=== PATIENT | female | born 1990 | race Caucasian/White ===

== ENCOUNTER 2025-01-08 16:59 | Inpatient (IN) | payer OTHER ==
[2025-01-08 17:26] VITALS: BMI 29.6
[2025-01-08 18:12] LABS: #Basophils Less than 0.03 10x3/uL (0.0-0.2); #Eosinophils 0.03 10x3/uL (0.0-0.5); #Monocytes 0.90 10x3/uL (0.0-1.1); #Neutrophils 5.95 10x3/uL (1.5-8.4); %Basophils 0.2 % (0.0-2.0); %Eosinophils 0.4 % (0.0-6.0); %Lymphocytes 16.4 % (18.0-47.0); %Monocytes 10.8 % (0.0-10.0); %Neutrophils 71.6 % (40.0-75.0); Hematocrit 30.3 % (34.9-44.5); Hemoglobin 10.1 g/dL (12.0-15.5); Mean Corpuscular Hemoglobin 29.4 pg (27.0-33.0); Mean Corpuscular Volume 88.1 fL (81.6-98.3); Platelet Count 185 10x3/uL (150-450); Red Blood Cell (RBC) Count 3.44 10x6/uL (3.90-5.03); White Blood Cell (WBC) Count 8.31 10x3/uL (3.5-10.5)
[2025-01-08 18:29] LABS: ALT (SGPT) 14 U/L (Less than 34); AST (SGOT) 22 U/L (11-34); Albumin 3.2 g/dL (3.1-4.5); Alkaline Phosphatase 87 U/L (40-110); Anion Gap 14 mmol/L (10-20); BUN (Urea Nitrogen) 8 mg/dL (7.0-18.7); Bilirubin, Total 0.2 mg/dL (0.3-1.2); Calc. Creatinine Clearance 172 mL/min (70-130); Calcium 9.1 mg/dL (7.8-10.44); Carbon Dioxide 21 mmol/L (22-29); Chloride 104 mmol/L (98-107); Globulin 4.1 g/dL (2.4-3.5); Glucose 91 mg/dL (70-105); Potassium 3.8 mmol/L (3.5-5.1); Sodium 135 mmol/L (136-145)
[2025-01-08 18:29] LABS: Protein, Urine Random Quant 26.0 mg/dL (1-14)
[2025-01-08] MEDS ORDERED: hydrALAZINE 20 MG/ML VIAL SLOW IVP PRN (19:43)
[2025-01-08] MEDS ORDERED: Oxytocin 30 units/NS 500 ML 500 ML IV SCH (19:45)
[2025-01-08] MEDS ORDERED: Calcium Gluc 4.6 MEQ/10 ML (100 MG/ML) SLOW IVP PRN (19:53)
[2025-01-08] MEDS: Magnesium Sulfate 20 gm/500 ml 20 GM/500 ML BAG IVPB SCH (20:30)
[2025-01-08] MEDS: Acetaminophen 500 MG TAB PO SCH (20:31)
[2025-01-08 22:04] LABS: Syphilis Antibody Index 0.03 S/CO (<1.00 Non-Reactive)
[2025-01-08 22:05] LABS: Hep B Surf Ag - L&D Non-Reactive S/CO (NonReactive)
[2025-01-09] MEDS: diphenhydrAMINE 50 MG/ML VIAL IVP SCH (01:04)
[2025-01-09] MEDS: Ondansetron PF 4 MG/2 ML Vial IVP PRN ×2 (03:23→21:30)
[2025-01-09 04:15] LABS: Magnesium 5.2 mg/dL (1.6-2.6)
[2025-01-09] MEDS ORDERED: Benzocaine-Menthol 82.5 ML CAN TOP PRN (04:42)
[2025-01-09] MEDS ORDERED: Ibuprofen 800 MG TAB PO PRN (06:23)
[2025-01-09] MEDS ORDERED: Lidocaine 1% (PF) 30 ML VIAL SC PRN (06:23)
[2025-01-09 06:45] LABS: #Basophils Less than 0.03 10x3/uL (0.0-0.2); #Eosinophils Less than 0.03 10x3/uL (0.0-0.5); #Monocytes 0.14 10x3/uL (0.0-1.1); #Neutrophils 9.66 10x3/uL (1.5-8.4); %Basophils 0.1 % (0.0-2.0); %Eosinophils 0.0 % (0.0-6.0); %Lymphocytes 7.4 % (18.0-47.0); %Monocytes 1.3 % (0.0-10.0); %Neutrophils 90.5 % (40.0-75.0); Hematocrit 30.2 % (34.9-44.5); Hemoglobin 9.9 g/dL (12.0-15.5); Mean Corpuscular Hemoglobin 29.3 pg (27.0-33.0); Mean Corpuscular Volume 89.3 fL (81.6-98.3); Platelet Count 197 10x3/uL (150-450); Red Blood Cell (RBC) Count 3.38 10x6/uL (3.90-5.03); White Blood Cell (WBC) Count 10.68 10x3/uL (3.5-10.5)
[2025-01-09 07:03] LABS: ALT (SGPT) 14 U/L (Less than 34); AST (SGOT) 20 U/L (11-34); Albumin 3.1 g/dL (3.1-4.5); Alkaline Phosphatase 86 U/L (40-110); Anion Gap 16 mmol/L (10-20); BUN (Urea Nitrogen) 6 mg/dL (7.0-18.7); Bilirubin, Total 0.3 mg/dL (0.3-1.2); Calc. Creatinine Clearance 163 mL/min (70-130); Calcium 7.4 mg/dL (7.8-10.44); Carbon Dioxide 20 mmol/L (22-29); Chloride 101 mmol/L (98-107); Globulin 4.0 g/dL (2.4-3.5); Glucose 156 mg/dL (70-105); Potassium 4.1 mmol/L (3.5-5.1); Sodium 133 mmol/L (136-145)
[2025-01-09] MEDS: Penicillin G Potassium 5 MILL.UNITS in Sodium Chloride 0.9% 100 ML IVPB SCH (08:36)
[2025-01-09] MEDS: Metoclopramide HCl 10 MG (2 mL) VIAL IVP SCH (09:41)
[2025-01-09] MEDS: Penicillin G 2.5 MILL.units 2.5 MILL.UNITS in Premix 1 BAG IVPB SCH (13:15)
[2025-01-09] MEDS: fentaNYL/Ropivacaine Epidural 100 ML ONE (19:35)
[2025-01-09] MEDS ORDERED: diphenhydrAMINE 50 MG/ML VIAL IVP PRN (19:49)
[2025-01-09] MEDS ORDERED: Communication Order-Pharmacy FS SCH (20:00)
[2025-01-09] MEDS ORDERED: Pantoprazole 40 MG DR.TAB PO SCH (22:15)
[2025-01-09] MEDS: Pantoprazole 40 MG VIAL IVP SCH (23:03)
[2025-01-10] MEDS: Oxytocin 30 units/NS 500 ML 500 ML IV SCH (02:01)
[2025-01-10] MEDS: fentaNYL 2 mcg/Ropivacaine 0.2% Epidural 100 ML CADD EPIDURAL SCH (04:53)
[2025-01-10] MEDS ORDERED: Diphenoxylate HCl/Atropine Tablet PO PRN (07:35)
[2025-01-10] MEDS ORDERED: Tranexamic Acid 1,000 MG in Sodium Chloride 0.9% 250 ML 250 ML IVPB PRN (07:36)
[2025-01-10] MEDS ORDERED: Carboprost 250 MCG/ML AMP IM PRN (07:38)
[2025-01-10] MEDS: Tranexamic Acid 1,000 MG/10 ML VIAL ONE (08:05)
[2025-01-10] MEDS ORDERED: Preparation H Ointment 28 GM TUBE PR PRN (08:34)
[2025-01-10] MEDS ORDERED: hydrALAZINE 20 MG/ML VIAL SLOW IVP PRN (08:34)
[2025-01-10] MEDS ORDERED: Bisacodyl 10 MG SUPP PR PRN (08:34)
[2025-01-10] MEDS ORDERED: Lanolin Ointment 7 GM TUBE TOP PRN (08:34)
[2025-01-10] MEDS ORDERED: Benzocaine-Menthol 82.5 ML CAN TOP PRN (08:34)
[2025-01-10] MEDS ORDERED: Milk Of Magnesia 30 ML UDCUP PO PRN (08:34)
[2025-01-10] MEDS ORDERED: Pantoprazole 40 MG GRANULES PACKET PO SCH (09:00)
[2025-01-10] MEDS: Boostrix 0.5 ML (Tdap) VIAL (>/=7 yrs of age) IM ONE (09:05)
[2025-01-10] MEDS: diphenhydrAMINE 50 MG/ML VIAL IVP SCH (09:05)
[2025-01-10] MEDS: Acetaminophen 500 MG TAB PO PRN (09:18)
[2025-01-10] MEDS: Pantoprazole 40 MG VIAL IVP SCH (09:20)
[2025-01-10 09:35] LABS: #Basophils Less than 0.03 10x3/uL (0.0-0.2); #Eosinophils Less than 0.03 10x3/uL (0.0-0.5); #Monocytes 0.73 10x3/uL (0.0-1.1); #Neutrophils 14.30 10x3/uL (1.5-8.4); %Basophils 0.1 % (0.0-2.0); %Eosinophils 0.0 % (0.0-6.0); %Lymphocytes 3.6 % (18.0-47.0); %Monocytes 4.6 % (0.0-10.0); %Neutrophils 91.0 % (40.0-75.0); Hematocrit 28.7 % (34.9-44.5); Hemoglobin 9.1 g/dL (12.0-15.5); Mean Corpuscular Hemoglobin 29.3 pg (27.0-33.0); Mean Corpuscular Volume 92.3 fL (81.6-98.3); Platelet Count 217 10x3/uL (150-450); Red Blood Cell (RBC) Count 3.11 10x6/uL (3.90-5.03); White Blood Cell (WBC) Count 15.72 10x3/uL (3.5-10.5)
[2025-01-10 09:37] LABS: ALT (SGPT) 12 U/L (Less than 34); AST (SGOT) 21 U/L (11-34); Albumin 2.9 g/dL (3.1-4.5); Alkaline Phosphatase 88 U/L (40-110); Anion Gap 18 mmol/L (10-20); BUN (Urea Nitrogen) 7 mg/dL (7.0-18.7); Bilirubin, Total 0.2 mg/dL (0.3-1.2); Calc. Creatinine Clearance 145 mL/min (70-130); Calcium 7.1 mg/dL (7.8-10.44); Carbon Dioxide 17 mmol/L (22-29); Chloride 105 mmol/L (98-107); Globulin 3.7 g/dL (2.4-3.5); Glucose 120 mg/dL (70-105); Potassium 4.3 mmol/L (3.5-5.1); Sodium 136 mmol/L (136-145)
[2025-01-10 09:43] LABS: Analyzer IN Cardio CS NICU; Critical Notified By: S. Buerger, RRT
[2025-01-10 09:45] LABS: Analyzer IN Cardio CS NICU; Critical Notified By: S. Buerger, RRT; pH (Cord, venous) 7.341 (7.250-7.350)
[2025-01-10] MEDS: Furosemide 40 MG (4 mL) VIAL SLOW IVP SCH (10:06)
[2025-01-10 10:49] LABS: INR-International Normal Ratio 0.9; PTT 23.2 sec (22.0-33.0); Prothrombin Time 9.7 sec (9.5-12.1)
[2025-01-10 12:17] LABS: Magnesium 4.2 mg/dL (1.6-2.6)
[2025-01-10] MEDS: Ibuprofen 800 MG TAB PO SCH (12:59)
[2025-01-10] MEDS ORDERED: Ibuprofen 800 MG TAB PO SCH (14:00)
[2025-01-10] MEDS: Carboprost 250 MCG/ML AMP ONE (14:38)
[2025-01-10] MEDS ORDERED: Bupivacaine/Epinephrine 0.25% 30 ML VIAL ONE (18:17)
[2025-01-10] MEDS ORDERED: Bupivacaine HCl 0.5%/Epinephrine 1:200,000/PF 30 ml Vial ONE (18:17)
[2025-01-10] MEDS ORDERED: Bupivacaine 0.25% HCL 30 ML VIAL ONE (18:17)
[2025-01-10] MEDS: Acetaminophen 325 MG TAB PO PRN (18:24)
[2025-01-10] MEDS: Ferrous Sulfate 325 MG TAB PO SCH (18:25)
[2025-01-10] MEDS: Magnesium Sulfate 20 gm/500 ml 20 GM/500 ML BAG ONE (22:08)
[2025-01-11] MEDS: HYDROcodone/Acetaminophen 5/325 mg Tablet PO SCH (01:32)
[2025-01-11] MEDS: Ibuprofen 800 MG TAB PO SCH (18:01)
[2025-01-12] MEDS: NIFEdipine XL 30 MG ER.TAB PO SCH (03:59)
[2025-01-12] MEDS ORDERED: NIFEdipine XL 60 MG ER.TAB PO SCH (23:45)
[2025-01-13] MEDS: NIFEdipine XL 60 MG ER.TAB PO SCH (02:32)
[2025-01-13] MEDS ORDERED: NIFEdipine XL 30 MG ER.TAB PO SCH (09:00)
[2025-01-13 15:57] VITALS: BP 131/84; TEMP 98.1
[2025-01-14] MEDS ORDERED: NIFEdipine XL 60 MG ER.TAB PO SCH (09:00)
== END 2025-01-13 16:25 | disposition home or self-care (01) | DRG 807 ==
LOC: CSHLD/OP 16:59 → CSHLD 20:26 → UNDOADMIN 20:26 → UNDOADMOB 01-09 08:56 → INTOOBSV 01-09 08:56 → CSHLD 01-09 08:56 → INTOOBSV 01-10 08:15 → OBSVTOIN 01-10 08:15 → CSHLD 01-10 10:15 → OBSVTOIN 01-10 10:15 → CSHLD 01-10 20:22 → CSHPP 01-11 10:30
PROVIDERS: ADMIT Student in an Organized Health Care Education/Training Program; ATTEND Student in an Organized Health Care Education/Training Program
PROC: 0U7C7DJ Dilation of Cervix with Intraluminal Device, Temporary, Via Natural or Artificial Opening (ICD-10-PCS; 2025-01-09)
PROC: 10E0XZZ Delivery of Products of Conception, External Approach (ICD-10-PCS; principal; 2025-01-10)
PROC: 3E033XZ Introduction of Vasopressor into Peripheral Vein, Percutaneous Approach (ICD-10-PCS; 2025-01-10)
DX: O14.14 Severe pre-eclampsia complicating childbirth (principal); Z37.0 Single live birth; O99.344 Other mental disorders complicating childbirth; Z3A.33 33 weeks gestation of pregnancy; F32.A Depression, unspecified; F41.9 Anxiety disorder, unspecified; O69.81X0 Labor and delivery complicated by cord around neck, without compression, not applicable or unspecified; O26.893 Other specified pregnancy related conditions, third trimester; Z67.11 Type A blood, Rh negative; R00.2 Palpitations; O99.42 Diseases of the circulatory system complicating childbirth
CPT/HCPCS: 36415; 36416; 51702; 59200; 80053; 82570; 82805; 83615; 83735; 84156; 85025; 85610; 85730; 86780; 86850; 86900; 86901; 87340; 88307; 99285; J0665; J0702; J0780; J1200; J1940; J2310; J2405; J2470; J2540; J2550; J2590; J2765; J3010; J3475

== ENCOUNTER 2025-01-19 22:09 | Emergency (ER) | payer OTHER | END 2025-01-19 22:57 | disposition home or self-care (01) | LOC: CSHERS 22:09 | DX: O9A.23 Injury, poisoning and certain other consequences of external causes complicating the puerperium (principal); T46.1X5A Adverse effect of calcium-channel blockers, initial encounter; F17.290 Nicotine dependence, other tobacco product, uncomplicated | CPT/HCPCS: 99284 ==